=== PATIENT | female | born 1970 | race Caucasian/White ===

== ENCOUNTER 2016-03-25 16:02 | Emergency (ER) | payer SELFPAY ==
[2016-03-25 16:20] VITALS: BP 154/93; TEMP 98.1; O2SAT 100
[2016-03-25] MEDS ORDERED: HYDROcodone 7.5MG/APAP 325MG 1 EA TAB PO ONE (16:41)
[2016-03-25] MEDS ORDERED: CLINDAMYCIN HCL CAP 150 MG CAP PO ONE (16:41)
[2016-03-25] MEDS ORDERED: cefTRIAXone SODIUM 1 GM VIAL IM ONE (16:41)
--- NOTE | 2016-03-25 16:46 | ED.PDOC ---
History of Present Illness - General Chief Complaint: Dental/Mouth Stated Complaint: dental abscess Time Seen by Provider: 03/25/16 16:18 Source: patient Exam Limitations: no limitations - History of Present Illness Initial Comments: the patient is a 45-year-old female presenting to the emergency room secondary to dental abscess along the left lower jaw line. He has been going on approximately 2 weeks. She has had low-grade fevers and malaise. No vomiting. Mild loss of appetite. She does need to see a dentist. She does have multiple dental caries. Timing/Duration: 1 week Severity: moderate Improving Factors: nothing Worsening Factors: nothing Associated Symptoms: loss of appetite, malaise Allergies/Adverse Reactions: Allergies Penicillin G Allergy (Verified 12/22/15 20:09) Sulfa Antibiotics Allergy (Verified 12/22/15 20:09) Home Medications: Ambulatory Orders Ciprofloxacin [Cipro] 500 mg PO BID #16 tab 12/27/15 Cephalexin Monohydrate [Keflex] 500 mg PO Q8H #30 cap 03/25/16 Review of Systems - Review of Systems Constitutional: States: fever, malaise EENTM: States: see HPI Respiratory: States: no symptoms reported Cardiology: States: no symptoms reported Gastrointestinal/Abdominal: States: no symptoms reported Genitourinary: States: no symptoms reported Musculoskeletal: States: no symptoms reported Skin: States: no symptoms reported Neurological: States: no symptoms reported Endocrine: States: no symptoms reported All other Systems: No Change from Baseline Past Medical History (General) - Patient Medical History Hx Seizures: No Hx Stroke: No Hx Asthma: No Hx of COPD: No Hx Congestive Heart Failure: No Hx Pacemaker: No Hx Hypertension: No Hx Diabetes: No Hx Cancer: No Hx Hepatitis C: No Surgical History: no surgical history - Vaccination History Hx Tetanus, Diphtheria Vaccination: No Hx Influenza Vaccination: No Hx Pneumococcal Vaccination: Yes - Social History Hx Tobacco Use: Yes Hx Alcohol Use: Yes Hx Substance Use: No Hx Substance Use Treatment: No Hx Depression: No Hx Physical Abuse: No Hx Emotional Abuse: No - Female History Patient : Yes Family Medical History - Family History Mother Family History: Unknown Living Status: Unknown Physical Exam - Physical Exam General Appearance: Alert, Anxious, No apparent distress Eye Exam: bilateral normal Ears, Nose, Throat: other - swelling along the left mid mandible. Multiple dental caries. Nares are clear. Hearing is normal. Neck: full range of motion, supple Respiratory: chest non-tender, lungs clear, normal breath sounds, no respiratory distress, no accessory muscle use Cardiovascular/Chest: normal peripheral pulses, regular rate, rhythm, no edema Peripheral Pulses: radial,right: 2+, radial,left: 2+ Gastrointestinal/Abdominal: non tender, soft Rectal Exam: deferred Back Exam: normal inspection, no CVA tenderness Extremity: normal range of motion, non-tender, normal inspection, no pedal edema , normal capillary refill Neurologic: alert, normal mood/affect, oriented x 3 Skin Exam: normal color Comments: Vital Signs - 24 hr 03/25/16 16:16 Temperature 98.1 F Pulse Rate [ 88 right arm] Respiratory 18 Rate Blood Pressure 154/93 [Right Arm] O2 Sat by Pulse 100 Oximetry Progress - Progress Progress: 03/25/16 16:44 the patient is a 45-year-old female with a left mandibular dental abscess. After risks and benefits were explained, an 18-gauge needle was used to aspirate pus from the inner aspect of the abscess. 2 cc were obtained and are being cultured. The patient was dosed with Rocephin IM and clindamycin by mouth. She will be placed on Keflex times daily for the next 10 days. She is to follow up with a dentist. Fioricet will be used for pain control and she can use Motrin additionally as needed. No evidence of sepsis at this time. She needs to follow up with her primary care doctor within the next 5 days. ER warnings were given for any acute worsening. Departure - Departure Clinical Impression: Dental abscess Disposition: Discharge to Home or Self Care Condition: Fair Departure Forms: ED Discharge - Pt. Copy, Patient Portal Self Enrollment Instructions: Tooth Abscess Diet: bland diet Activity: increase activity as tolerated Referrals: Pete El MD [Primary Care Provider] - 1-5 Days Prescriptions: Cephalexin Monohydrate [Keflex] 500 mg PO Q8H #30 cap Home Medications: Ambulatory Orders Ciprofloxacin [Cipro] 500 mg PO BID #16 tab 12/27/15 Cephalexin Monohydrate [Keflex] 500 mg PO Q8H #30 cap 03/25/16 Additional Instructions: the patient is a 45-year-old female with a left mandibular dental abscess. After risks and benefits were explained, an 18-gauge needle was used to aspirate pus from the inner aspect of the abscess. 2 cc were obtained and are being cultured. The patient was dosed with Rocephin IM and clindamycin by mouth. She will be placed on Keflex times daily for the next 10 days. She is to follow up with a dentist. Fioricet will be used for pain control and she can use Motrin additionally as needed. No evidence of sepsis at this time. She needs to follow up with her primary care doctor within the next 5 days. ER warnings were given for any acute worsening.
[2016-03-25] MEDS ORDERED: LIDOCAINE 1% 10 ML VIAL INJ ONE (16:50)
== END 2016-03-25 17:20 | disposition home or self-care (01) ==
LOC: ER 16:02
DX: K04.7 Periapical abscess without sinus (principal); Z88.0 Allergy status to penicillin; Z88.2 Allergy status to sulfonamides; Z87.891 Personal history of nicotine dependence

== ENCOUNTER 2016-04-04 13:47 | Emergency (ER) | payer SELFPAY ==
[2016-04-04 14:05] VITALS: TEMP 98.1
--- NOTE | 2016-04-04 14:47 | ED.PDOC ---
History of Present Illness - General Chief Complaint: Dental/Mouth Stated Complaint: "Abscess" different tooth this time Time Seen by Provider: 04/04/16 13:55 Source: patient, RN notes reviewed, Vital Signs reviewed, old records Exam Limitations: no limitations - History of Present Illness Initial Comments: Patient is a 45 y/o female who was seen on 03/25/2016 for a gingival abscess. She was given rocephin in the ED and placed on Keflex. The abscess was cultured and showed only normal skin yashiar growth. She comes in today complaining of pain in a different tooth on the other side of her mouth. It does not feel like an abscess, but the tooth hurts - severe. No fever/chills, no swollen jaw. Timing/Duration: 24 hours Severity: severe Improving Factors: nothing Worsening Factors: eating Associated Symptoms: denies symptoms Allergies/Adverse Reactions: Allergies Penicillin G Allergy (Verified 12/22/15 20:09) Sulfa Antibiotics Allergy (Verified 12/22/15 20:09) Home Medications: Ambulatory Orders Tramadol HCl 50 mg PO Q8H PRN #30 tab 03/25/16 Clindamycin HCl 300 mg PO TID #21 cap 04/04/16 Gabapentin 300 mg PO TID PRN #21 cap 04/04/16 Review of Systems - Review of Systems Constitutional: States: no symptoms reported. Denies: chills, fever EENTM: States: other - tooth pain, upper right Respiratory: States: no symptoms reported Cardiology: States: no symptoms reported Gastrointestinal/Abdominal: States: no symptoms reported Genitourinary: States: no symptoms reported Musculoskeletal: States: no symptoms reported Skin: States: no symptoms reported Neurological: States: no symptoms reported Endocrine: States: no symptoms reported Hematologic/Lymphatic: States: no symptoms reported Past Medical History (General) - Patient Medical History Hx Seizures: No Hx Stroke: No Hx Asthma: No Hx of COPD: No Hx Congestive Heart Failure: No Hx Pacemaker: No Hx Hypertension: No Hx Diabetes: No Hx Cancer: No Hx Hepatitis C: No Surgical History: Hysterectomy - Vaccination History Hx Tetanus, Diphtheria Vaccination: No Hx Influenza Vaccination: No Hx Pneumococcal Vaccination: No - Social History Hx Tobacco Use: Yes Cigarettes Packs Per Day: 1 Hx Alcohol Use: Yes Hx Substance Use: No Hx Substance Use Treatment: No Hx Depression: No Hx Physical Abuse: No Hx Emotional Abuse: No - Female History Patient is a Female of Child Bearing Age (10 -59 yrs old): Yes - Hysterectomy in 2010 Patient : Yes Family Medical History - Family History Mother Family History: Unknown Living Status: Unknown Physical Exam - Physical Exam General Appearance: Alert, Comfortable, No apparent distress Eye Exam: bilateral normal Ears, Nose, Throat: hearing grossly normal, other - upper right molar with significant caries down to the pulp, tender with palpation Neck: non-tender - No LAD Respiratory: no respiratory distress, no accessory muscle use Extremity: normal range of motion Skin Exam: normal color, warm/dry Departure - Departure Clinical Impression: Acute pulpitis Time of Disposition: 14:50 Disposition: Discharge to Home or Self Care Condition: Fair Departure Forms: ED Discharge - Pt. Copy, Patient Portal Self Enrollment Diet: resume usual diet Referrals: Pete El MD [Primary Care Provider] - 1-5 Days Prescriptions: Clindamycin HCl 300 mg PO TID #21 cap Gabapentin 300 mg PO TID PRN #21 cap PRN Reason: Pain Home Medications: Ambulatory Orders Tramadol HCl 50 mg PO Q8H PRN #30 tab 03/25/16 Clindamycin HCl 300 mg PO TID #21 cap 04/04/16 Gabapentin 300 mg PO TID PRN #21 cap 04/04/16 Additional Instructions: Discontinue cephalexin and amoxicillin if taking. Follow up with dentist in 1 week. Follow up with PCP in 5 days.
[2016-04-04 15:05] VITALS: BP 135/80; O2SAT 95
== END 2016-04-04 15:00 | disposition home or self-care (01) ==
LOC: ER 13:47
DX: K04.01 Reversible pulpitis (principal); F17.210 Nicotine dependence, cigarettes, uncomplicated; Z88.0 Allergy status to penicillin; Z88.2 Allergy status to sulfonamides

== ENCOUNTER 2016-05-08 04:38 | Emergency (ER) | payer SELFPAY ==
[2016-05-08] MEDS ORDERED: LACTATED RINGERS 1,000 ML ONE (05:03)
[2016-05-08] MEDS ORDERED: MORPHINE SULFATE INJ 10 MG/ML VIAL IV ONE (05:05)
[2016-05-08] MEDS ORDERED: SODIUM CHLORIDE 0.9% 1000ML 1,000 ML IVS ONE (05:05)
[2016-05-08] MEDS ORDERED: KETOROLAC TROMETHAMINE INJ 30 MG/ML VIAL IV ONE (05:05)
[2016-05-08] MEDS ORDERED: PROMETHAZINE HCL INJ 25 MG/ML VIAL IM ONE (05:05)
--- NOTE | 2016-05-08 05:05 | ED.PDOC ---
History of Present Illness - General Chief Complaint: Problem Stated Complaint: mid to low back pain amd abd pain, hurts to void. Time Seen by Provider: 05/08/16 05:04 Source: patient, RN notes reviewed Exam Limitations: no limitations - History of Present Illness Initial Comments: 45 y/o female with previous history of kidney stone in the past stated that she woke up from her sleep one hour ago with sudden onset of stabbing left flank pain radiating to her left lower side of her abdomen.She had also pain on urination yesterday but went away Timing/Duration: just prior to arrival, constant Quality: stabbing, throbbing Onset Location: left flank Radiation: LLQ Activites at Onset: sleep Prior abdominal problems: similar symptoms Sexual intercourse history: single partner Improving Factors: nothing Worsening Factors: nothing Associated Symptoms: dysuria Allergies/Adverse Reactions: Allergies Penicillin G Allergy (Verified 05/08/16 04:47) Sulfa Antibiotics Allergy (Verified 05/08/16 04:47) Home Medications: Ambulatory Orders Naproxen [Naprosyn] 500 mg PO BID #10 tab 05/08/16 Promethazine HCl 50 mg PO TID PRN #14 tab 05/08/16 Tamsulosin HCl [Flomax] 0.4 mg PO DAILY #7 cap 05/08/16 Tramadol HCl 50 mg PO Q6HRS #10 tab 05/08/16 Review of Systems - Review of Systems Constitutional: States: no symptoms reported EENTM: States: no symptoms reported Respiratory: States: no symptoms reported Cardiology: States: no symptoms reported Gastrointestinal/Abdominal: States: see HPI Genitourinary: States: see HPI Musculoskeletal: States: no symptoms reported Skin: States: no symptoms reported Neurological: States: no symptoms reported Endocrine: States: no symptoms reported Hematologic/Lymphatic: States: no symptoms reported Past Medical History (General) - Patient Medical History Hx Seizures: No Hx Stroke: No Hx Asthma: No Hx of COPD: No Hx Congestive Heart Failure: No Hx Pacemaker: No Hx Hypertension: No Hx Diabetes: No Hx Cancer: No Hx Hepatitis C: No Hx Other PMH: Yes - kidney stone Surgical History: other - hysterectomy - Vaccination History Hx Tetanus, Diphtheria Vaccination: No Hx Influenza Vaccination: No Hx Pneumococcal Vaccination: No - Social History Hx Tobacco Use: Yes Hx Alcohol Use: Yes Hx Substance Use: No Hx Substance Use Treatment: No Hx Depression: No Hx Physical Abuse: No Hx Emotional Abuse: No - Activities of Daily Living Patient Lives Alone: No - - Female History Patient : Yes Family Medical History - Family History Mother Family History: Unknown Living Status: Unknown Hx Family Hypertension: Yes - mom Hx Family;Other: nephrolithiasis Physical Exam - Physical Exam General Appearance: Alert, Anxious, Other - in pain Eyes, Ears, Nose, Throat Exam: PERRL/EOMI, normal ENT inspection, TMs normal, pharynx normal Neck: non-tender, full range of motion, supple, normal inspection Cardiovascular/Respiratory: regular rate, rhythm, no M/R/G, normal peripheral pulses, normal breath sounds, no respiratory distress Gastrointestinal/Abdominal: normal bowel sounds, non tender, soft, no organomegaly Back Exam: no vertebral tenderness, CVA tenderness (L) Extremity: non-tender, normal inspection, no pedal edema, no calf tenderness Neurologic: no motor/sensory deficits, alert, oriented x 3 Skin Exam: normal color, warm/dry Lymphatic: no adenopathy Progress - Results/Orders Results/Orders: 05/08/16 05:05 Sodium Chloride 0.9% 1000ML [Ns 1000 ml] 1,000 ml IVS ONCE 05/08/16 05:23 URINE CULTURE W/COLONY COUNT Stat 05/08/16 06:02 Lactated Ringers [Lr] 1,000 ml IVS ONCE Laboratory Results WBC 5.2 K/mm3 (4.8-10.8) 05/08/16 05:05 RBC 4.96 M/mm3 (4.20-5.40) 05/08/16 05:05 Hgb 15.5 gm/dL (12.0-16.0) 05/08/16 05:05 Hct 46.4 % (36.0-47.0) 05/08/16 05:05 MCV 93.5 fl (81.0-99.0) 05/08/16 05:05 MCH 31.2 pg (27.0-31.0) H 05/08/16 05:05 MCHC 33.5 g/dL (33.0-37.0) 05/08/16 05:05 RDW 13.6 % (11.5-14.5) 05/08/16 05:05 Plt Count 285 K/mm3 (130-400) 05/08/16 05:05 MPV 6.9 fl (7.40-10.4) L 05/08/16 05:05 Absolute Neuts (auto) 3.80 K/uL (1.8-6.8) 05/08/16 05:05 Absolute Lymphs (auto) 1.00 K/uL (1.0-3.4) 05/08/16 05:05 Absolute Monos (auto) 0.40 K/uL (0.2-0.8) 05/08/16 05:05 Absolute Eos (auto) 0.00 K/uL (0.0-0.4) 05/08/16 05:05 Absolute Basos (auto) 0.00 K/uL (0.0-0.1) 05/08/16 05:05 Neutrophils % 72.4 % (42.0-78.0) 05/08/16 05:05 Lymphocytes % 18.2 % (20.0-50.0) L 05/08/16 05:05 Monocytes % 8.1 % (2.0-9.0) 05/08/16 05:05 Eosinophils % 0.8 % (1.0-5.0) L 05/08/16 05:05 Basophils % 0.5 % (0.0-2.0) 05/08/16 05:05 Sodium 136 mmol/L (135-145) 05/08/16 05:05 Potassium 4.3 mmol/L (3.6-5.0) 05/08/16 05:05 Chloride 100 mmol/L (101-111) L 05/08/16 05:05 Carbon Dioxide 28 mmol/L (21-31) 05/08/16 05:05 Anion Gap 12.3 (12-18) 05/08/16 05:05 BUN 10 mg/dL (7-18) 05/08/16 05:05 Creatinine 0.66 mg/dL (0.6-1.3) 05/08/16 05:05 BUN/Creatinine Ratio 15.2 (10-20) 05/08/16 05:05 Random Glucose 103 mg/dL (70-105) 05/08/16 05:05 Serum Osmolality 271.3 mOsm/L (275-295) L 05/08/16 05:05 Calcium 8.9 mg/dL (8.4-10.2) 05/08/16 05:05 Total Bilirubin 0.6 mg/dL (0.2-1.0) 05/08/16 05:05 AST 21 IU/L (10-42) 05/08/16 05:05 ALT 21 IU/L (10-60) 05/08/16 05:05 Alkaline Phosphatase 57 IU/L (42-121) 05/08/16 05:05 Serum Total Protein 6.9 gm/dL (6.4-8.2) 05/08/16 05:05 Albumin 3.9 g/dl (3.2-5.5) 05/08/16 05:05 Globulin 3.0 gm/dL (2.3-3.5) 05/08/16 05:05 Albumin/Globulin Ratio 1.3 (1.1-1.9) 05/08/16 05:05 Urine Color Yellow (Yellow) 05/08/16 04:45 Urine Appearance Sl cloudy (Clear) 05/08/16 04:45 Urine pH 6.0 (4.5-7.8) 05/08/16 04:45 Ur Specific [place] >= 1.030 (1.005-1.030) 05/08/16 04:45 Urine Protein 30 mg/dL 05/08/16 04:45 Urine Glucose (UA) Negative mg/dL (Negative) 05/08/16 04:45 Urine Ketones Negative mg/dL (NEGATIVE) 05/08/16 04:45 Urine Blood Moderate (Negative) H 05/08/16 04:45 Urine Nitrite Negative 05/08/16 04:45 Urine Bilirubin Small (NEGATIVE) H 05/08/16 04:45 Urine Urobilinogen 0.2 mg/dL (0.2-1.0) 05/08/16 04:45 Ur Leukocyte Esterase Negative (Negative) 05/08/16 04:45 Urine RBC 20-30 /hpf H 05/08/16 04:45 Urine WBC 1-3 /hpf 05/08/16 04:45 Ur Epithelial Cells 20-30 /hpf 05/08/16 04:45 Amorphous Sediment Trace 05/08/16 04:45 Urine Bacteria 2+ H 05/08/16 04:45 Urine Mucus Trace 05/08/16 04:45 Urine Opiates Screen Positive ng/mL (2000) H 05/08/16 05:05 Urine Barbiturates Negative ng/mL (200) 05/08/16 05:05 Ur Phencyclidine Scrn Negative ng/mL (25) 05/08/16 05:05 U Amphetamin/Meth Scrn Positive ng/mL (1000) H 05/08/16 05:05 U Benzodiazepines Scrn Negative ng/mL (200) 05/08/16 05:05 U Cocaine Metab Screen Negative ng/mL (300) 05/08/16 05:05 U Cannabinoids Screen Positive ng/mL (50) H 05/08/16 05:05 URINE DRUG SCREEN POSITIVE:OPIATES,METHAMPHETAMINES,CANNABINOIDS - EKG/XRAY/CT CT: Left distal ureterolthiasis CT Ordered: Yes - syd.nonobstructing kidney stone Departure - Departure Clinical Impression: Flank pain, acute, Ureterolithiasis, Microscopic hematuria, Nephrolithiasis Time of Disposition: 06:11 Disposition: Discharge to Home or Self Care Condition: Good Departure Forms: ED Discharge - Pt. Copy, Patient Portal Self Enrollment Instructions: DI for Kidney Stones, Kidney Stones -- Adult, Extracorporeal Shock Wave Lithotripsy for Kidney Stones, Kidney Stones (Alternative Therapy) Referrals: Pete El MD [Primary Care Provider] - 1-2 Weeks Prescriptions: Tramadol HCl 50 mg PO Q6HRS #10 tab Tamsulosin HCl [Flomax] 0.4 mg PO DAILY #7 cap Naproxen [Naprosyn] 500 mg PO BID #10 tab Promethazine HCl 50 mg PO TID PRN #14 tab PRN Reason: Nausea Home Medications: Ambulatory Orders Naproxen [Naprosyn] 500 mg PO BID #10 tab 05/08/16 Promethazine HCl 50 mg PO TID PRN #14 tab 05/08/16 Tamsulosin HCl [Flomax] 0.4 mg PO DAILY #7 cap 05/08/16 Tramadol HCl 50 mg PO Q6HRS #10 tab 05/08/16 Additional Instructions: FOLLOW UP WITH YOUR MD FOR UROLOGY REFERRAL.NEED TO DRINK EXTRA FLUIDS
--- NOTE | 2016-05-08 05:57 | CT ---
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 Images in the axial and coronal planes were presented for interpretation FINDINGS: The visualized portions of the lung bases are clear. The cardiomediastinal structures are within normal limits. Within the upper abdomen, the liver and spleen are normal in size and morphology. The gallbladder is normal in morphology. The intra/extrahepatic biliary tree is normal in appearance. The pancreas and adrenal glands are normal. The right kidney is normal in size and the right ureter is normal in course and caliber. There is a punctate nonobstructing stone in the mid right renal collecting system on coronal image 66. There are no distal obstructing stones or evidence of hydronephrosis/hydroureter. The left kidney is edematous and enlarged. There is a 3 mm partially obstructing stone in the distal left ureter on axial image 73. There is mild to moderate left-sided hydronephrosis and proximal hydroureter. There are at least three additional nonobstructing left renal calculi in the upper and lower pole of the left renal collecting system best seen on axial image 22 and 32 measuring 3 mm in diameter. There are no additional ureteral stones. The stomach and small intestines are within normal limits without evidence of bowel dilation or wall thickening. The appendix is not well-visualized. The colon is stool filled and unremarkable. Within the pelvis, the bladder and rectum are normal. The uterus is not well visualized and likely partially surgically absent. The ovaries are not visualized. There are no pathologically enlarged inguinal, retroperitoneal, portacaval, or mesenteric lymph nodes. The soft tissue structures of the abdominal wall are normal. The visualized osseous structures are within normal limits for the patient's age. The abdominal aorta and its primary branches are normal in course and caliber. Limited evaluation of the venous structures demonstrates no gross abnormalities. IMPRESSION: 1. Partially obstructing 3 mm distal left ureteral stone. 2. Additional nonobstructing bilateral renal calculi. 3. Hysterectomy. Electronically signed by: Marisol Coto MD 05/08/2016 5:57 AM HAND SIGN WRITER
[2016-05-08] MEDS ORDERED: LACTATED RINGERS 1,000 ML IVS ONE (06:02)
[2016-05-08 06:34] VITALS: BP 112/74; TEMP 98.1; O2SAT 99
== END 2016-05-08 06:33 | disposition home or self-care (01) ==
LOC: ER 04:38
DX: N20.2 Calculus of kidney with calculus of ureter (principal); Z87.442 Personal history of urinary calculi; Z88.0 Allergy status to penicillin; Z88.2 Allergy status to sulfonamides

== ENCOUNTER 2017-03-14 21:38 | Emergency (ER) | payer SELFPAY ==
[2017-03-14 21:56] VITALS: O2SAT 97
[2017-03-14] MEDS ORDERED: cefTRIAXone SODIUM 1 GM VIAL IM ONE (22:41)
[2017-03-14] MEDS ORDERED: cefTRIAXone SODIUM 1 GM VIAL ONE (22:41)
[2017-03-14] MEDS ORDERED: NITROFURANTOIN MONOHYDRATE MAC 100 MG CAP ONE (22:51)
[2017-03-14] MEDS ORDERED: LIDOCAINE 1% 10 ML VIAL INJ ONE (22:51)
[2017-03-14] MEDS ORDERED: NITROFURANTOIN 50 MG CAP PO ONE (22:57)
[2017-03-14] MEDS ORDERED: ONDANSETRON ODT 8 MG TAB SL ONE (23:01)
[2017-03-14] MEDS ORDERED: ACETAMINOPHEN 325 MG TAB PO ONE (23:01)
[2017-03-14] MEDS ORDERED: SODIUM CHLORIDE 0.9% 1000ML 1,000 ML IVS ONE (23:01)
[2017-03-14] MEDS ORDERED: ALUMINUM & MAGNESIUM HYDROXIDE 30 ML UD PO ONE (23:01)
[2017-03-14] MEDS ORDERED: DOXYCYCLINE HYCLATE CAP 100 MG CAP PO ONE (23:11)
--- NOTE | 2017-03-14 23:59 | ED.PDOC ---
History of Present Illness - General Chief Complaint: Problem Stated Complaint: dx c kidney infection 03/07 not better Time Seen by Provider: 03/14/17 21:45 Source: patient Exam Limitations: no limitations - History of Present Illness Initial Comments: The patient is a 46-year-old female presenting to the emergency room secondary to symptoms of urinary frequency and dysuria for the last week and a half. She was seen in outside hospital and was started on ciprofloxacin approximately 6 days ago. Her urinary symptoms have not improved. She is having more abdominal cramping. She is having some fevers now. No flank pain. No palpitations. No syncope or near syncope. No vaginal discharge. Timing/Duration: 1 week Severity: moderate Improving Factors: nothing Worsening Factors: nothing Associated Symptoms: fever/chills, malaise Allergies/Adverse Reactions: Allergies Penicillin G Allergy (Verified 03/14/17 21:56) Sulfa Antibiotics Allergy (Verified 03/14/17 21:56) Home Medications: Ambulatory Orders Ciprofloxacin [Cipro] 500 mg PO BID 03/14/17 Doxycycline Hyclate 100 mg PO BID #20 cap 03/15/17 Nitrofurantoin Monohyd Macro [Nitrofurantoin Monohydrat] 100 mg PO BID #20 cap 03/15/17 Review of Systems - Review of Systems Constitutional: States: fever, malaise EENTM: States: no symptoms reported Respiratory: States: no symptoms reported Cardiology: States: no symptoms reported Gastrointestinal/Abdominal: States: abdominal pain Genitourinary: States: dysuria, frequency, pain. Denies: discharge, hematuria Musculoskeletal: States: no symptoms reported Skin: States: no symptoms reported Neurological: States: no symptoms reported Endocrine: States: no symptoms reported All other Systems: No Change from Baseline Past Medical History (General) - Patient Medical History Hx Seizures: No Hx Stroke: No Hx Dementia: No Hx Asthma: No Hx of COPD: No Hx Cardiac Disorders: No Hx Congestive Heart Failure: No Hx Pacemaker: No Hx Hypertension: No Hx Thyroid Disease: No Hx Diabetes: No Hx Renal Disease: No Hx Cancer: No Hx of HIV: No Hx Hepatitis C: No Hx MRSA: No - Vaccination History Hx Tetanus, Diphtheria Vaccination: No Hx Influenza Vaccination: No Hx Pneumococcal Vaccination: No - Social History Hx Tobacco Use: Yes Hx Alcohol Use: Yes Hx Substance Use: No Hx Substance Use Treatment: No Hx Depression: No Hx Physical Abuse: No Hx Emotional Abuse: No - Female History Patient : Yes Family Medical History - Family History Mother Family History: Unknown Living Status: Unknown Hx Family Hypertension: Yes - mom Hx Family;Other: nephrolithiasis Physical Exam - Physical Exam General Appearance: Alert, No apparent distress Eye Exam: bilateral normal Ears, Nose, Throat: hearing grossly normal, normal ENT inspection, normal pharynx Neck: full range of motion, supple Respiratory: lungs clear, normal breath sounds, no respiratory distress, no accessory muscle use Cardiovascular/Chest: normal peripheral pulses, regular rate, rhythm, no edema Peripheral Pulses: radial,right: 2+, radial,left: 2+ Gastrointestinal/Abdominal: soft, other - mild suprapubic discomfort to palpation. No definite rebound or peritoneal signs. Rectal Exam: deferred Back Exam: normal inspection, no CVA tenderness, no vertebral tenderness Extremity: normal range of motion, non-tender, normal inspection, no pedal edema , normal capillary refill Neurologic: alert, normal mood/affect, oriented x 3 Skin Exam: normal color Comments: Vital Signs - 24 hr 03/14/17 21:45 Temperature 101.2 F H Pulse Rate [ 108 H monitor] Respiratory 16 Rate Blood Pressure 128/76 [Left Arm] O2 Sat by Pulse 97 Oximetry Progress - Progress Progress: 03/15/17 00:00 the patient's 46-year-old female presenting to the emergency room secondary to persistent symptoms of cystitis. The patient will discontinue her ciprofloxacin. She has received a liter of IV fluids here. The patient is being started on doxycycline and Macrobid. She will continue these for 10 days with food. She did receive a dose of Rocephin here. She needs to follow up with her primary care doctor in the middle of this coming week for a repeat urinalysis to make sure that the urine is clearing. Urine culture is being sent up here. ER warnings were given for any significant worsening. - Results/Orders Results/Orders: Laboratory Tests 03/14/17 22:00 Urine Color Yellow Urine Appearance Cloudy Urine pH 6.0 Ur Specific [place] 1.020 Urine Protein 30 Urine Glucose (UA) Negative Urine Ketones 40 H Urine Blood Moderate H Urine Nitrite Positive H Urine Bilirubin Negative Urine Urobilinogen 0.2 Ur Leukocyte Esterase Moderate H Urine RBC 5-10 H Urine WBC Tntc H Ur Epithelial Cells 10-20 Urine Bacteria 4+ H Departure - Departure Clinical Impression: Cystitis Disposition: Discharge to Home or Self Care Condition: Fair Departure Forms: ED Discharge - Pt. Copy, Patient Portal Self Enrollment Instructions: DI for Urinary Tract Infection (UTI) Diet: regular diet Activity: increase activity as tolerated Referrals: Pete El MD [Primary Care Provider] - 1-5 Days Prescriptions: Doxycycline Hyclate 100 mg PO BID #20 cap Nitrofurantoin Monohyd Macro [Nitrofurantoin Monohydrat] 100 mg PO BID #20 cap Home Medications: Ambulatory Orders Ciprofloxacin [Cipro] 500 mg PO BID 03/14/17 Doxycycline Hyclate 100 mg PO BID #20 cap 03/15/17 Nitrofurantoin Monohyd Macro [Nitrofurantoin Monohydrat] 100 mg PO BID #20 cap 03/15/17 Additional Instructions: the patient's 46-year-old female presenting to the emergency room secondary to persistent symptoms of cystitis. The patient will discontinue her ciprofloxacin. She has received a liter of IV fluids here. The patient is being started on doxycycline and Macrobid. She will continue these for 10 days with food. She did receive a dose of Rocephin here. She needs to follow up with her primary care doctor in the middle of this coming week for a repeat urinalysis to make sure that the urine is clearing. Urine culture is being sent up here. ER warnings were given for any significant worsening.
[2017-03-15 00:16] VITALS: BP 116/77; TEMP 98.9
[2017-03-15] MEDS ORDERED: NITROFURANTOIN 50 MG CAP PO ONE (22:42)
== END 2017-03-15 00:16 | disposition home or self-care (01) ==
LOC: ER 21:38
DX: N30.90 Cystitis, unspecified without hematuria (principal); Z87.891 Personal history of nicotine dependence; Z88.0 Allergy status to penicillin; Z88.2 Allergy status to sulfonamides
CPT/HCPCS: 81001; 87086; 87088; 87186; J0696; J7030

== ENCOUNTER 2017-09-18 01:21 | Emergency (ER) | payer SELFPAY ==
--- NOTE | 2017-09-18 01:39 | ED.PDOC ---
History of Present Illness - General Chief Complaint: Dental/Mouth Stated Complaint: Toothache Time Seen by Provider: 09/18/17 01:36 Additional Information: 46 YEAR OLD COMPLAINTS OF TOOTH ACHE X 2 DAYS SHE HAS NO FEVER NO SWELLING SHE HAS MULTIPLE DENTAL CARIES - History of Present Illness Timing/Duration: constant Severity: moderate Improving Factors: nothing Worsening Factors: cold therapy, eating Associated Symptoms: denies symptoms Allergies/Adverse Reactions: Allergies Penicillin G Allergy (Verified 03/14/17 21:56) Sulfa Antibiotics Allergy (Verified 03/14/17 21:56) Home Medications: Ambulatory Orders Ciprofloxacin [Cipro] 500 mg PO BID 03/14/17 Doxycycline Hyclate 100 mg PO BID #20 cap 03/15/17 Nitrofurantoin Monohyd Macro [Nitrofurantoin Monohydrat] 100 mg PO BID #20 cap 03/15/17 Acetamin W/Cod #3 Tab [Tylenol w/CODEINE #3] 1 ea PO Q6HR PRN #40 tab 09/18/17 Amoxicillin [Amoxil] 500 mg PO Q8HRS 10 Days #30 cap 09/18/17 Clindamycin HCl [Cleocin] 300 mg PO Q6H #40 cap 09/18/17 Review of Systems - Review of Systems Constitutional: States: no symptoms reported EENTM: States: no symptoms reported Respiratory: States: no symptoms reported Cardiology: States: no symptoms reported Gastrointestinal/Abdominal: States: no symptoms reported Genitourinary: States: no symptoms reported Musculoskeletal: States: no symptoms reported Skin: States: no symptoms reported Neurological: States: no symptoms reported Past Medical History (General) - Patient Medical History Hx Seizures: No Hx Stroke: No Hx Dementia: No Hx Asthma: No Hx of COPD: No Hx Cardiac Disorders: No Hx Congestive Heart Failure: No Hx Pacemaker: No Hx Hypertension: No Hx Thyroid Disease: No Hx Diabetes: No Hx Gastroesophageal Reflux: No Hx Renal Disease: No Hx Cancer: No Hx of HIV: No Hx Hepatitis C: No Hx MRSA: No Surgical History: tonsillectomy, other - Vaccination History Hx Tetanus, Diphtheria Vaccination: No Hx Influenza Vaccination: No Hx Pneumococcal Vaccination: No Immunizations Up to Date: No - Social History Hx Tobacco Use: Yes Hx Alcohol Use: No Hx Substance Use: No Hx Substance Use Treatment: No Hx Depression: No Feels Threatened In Home Enviroment: No Feels Threatened In a Relationship: No Hx Physical Abuse: No Hx Emotional Abuse: No Hx Suspected Abuse: No - Activities of Daily Living Hospice Agency (if applicable):: None - Female History Patient : Yes - Triage Comment ED Triage Comment: Pt states that she has a toothache that has been going on x2 days. Pt states she has been taking ibuprofen and alleve for pain. Family Medical History - Family History Mother Family History: Unknown Living Status: Unknown Hx Family Hypertension: Yes - mom Hx Family;Other: nephrolithiasis Physical Exam - Physical Exam General Appearance: Alert, Comfortable Ears, Nose, Throat: hearing grossly normal, normal ENT inspection, normal pharynx, other - DENTAL DECAY AND CAVITY LEFT LOWER MOLAR THAT IS TENDER ON PALPATION Neck: non-tender, full range of motion, supple Respiratory: chest non-tender, lungs clear, normal breath sounds, no respiratory distress, no accessory muscle use Gastrointestinal/Abdominal: normal bowel sounds, non tender, soft, no organomegaly, no pulsatile mass Extremity: normal range of motion, non-tender, normal inspection Neurologic: lode miner II-XII nml as tested, no motor/sensory deficits, alert, oriented x 3 Departure - Departure Clinical Impression: Dental caries Time of Disposition: 01:43 Disposition: Discharge to Home or Self Care Condition: Good Departure Forms: ED Discharge - Pt. Copy, Patient Portal Self Enrollment Diet: resume usual diet Home Medications: Ambulatory Orders Ciprofloxacin [Cipro] 500 mg PO BID 03/14/17 Doxycycline Hyclate 100 mg PO BID #20 cap 03/15/17 Nitrofurantoin Monohyd Macro [Nitrofurantoin Monohydrat] 100 mg PO BID #20 cap 03/15/17 Acetamin W/Cod #3 Tab [Tylenol w/CODEINE #3] 1 ea PO Q6HR PRN #40 tab 09/18/17 Amoxicillin [Amoxil] 500 mg PO Q8HRS 10 Days #30 cap 09/18/17 Clindamycin HCl [Cleocin] 300 mg PO Q6H #40 cap 09/18/17
[2017-09-18] MEDS ORDERED: KETOROLAC TROMETHAMINE INJ 60 MG/2 ML VIAL IM ONE (01:40)
[2017-09-18 02:47] VITALS: BP 116/72; TEMP 98.3; O2SAT 100
== END 2017-09-18 02:20 | disposition home or self-care (01) ==
LOC: ER 01:21
DX: K02.9 Dental caries, unspecified (principal); Z87.891 Personal history of nicotine dependence; Z88.0 Allergy status to penicillin; Z88.2 Allergy status to sulfonamides